=== PATIENT | female | born 1935 | race Caucasian/White ===

== ENCOUNTER 2016-08-17 08:43 | Inpatient (IN) ==
[2016-08-17] MEDS ORDERED: Lidocaine -MPF 1% 2 ML VIAL ID ONE (09:02)
[2016-08-17] MEDS ORDERED: CeFAZolin Pre 2,000 MG/100 ML 2,000 MG/100 ML BAG IVPB ONE (09:02)
[2016-08-17] MEDS ORDERED: Ringers Solution, Lactated 1,000 ML IVC SCH (09:15)
[2016-08-17] MEDS ORDERED: Ondansetron ODT 4 MG TAB.RAPDIS SL ONE (09:23)
[2016-08-17] MEDS ORDERED: Acetaminophen IV 1,000 MG/100 ML INFUS..BTL IVPB ONE (09:23)
--- NOTE | 2016-08-17 09:27 | Anesthesia Evaluation PreOp ---
Date of Encounter: 08/17/16 Time of Encounter: 09:25 - Past History Planned Operation: preet fundoplication Cardiac History: HTN Pulmonary History: Denies Any Significant HX, Snore DIRECTOR OF STUDENT FINANCIAL AID History: Denies Any Significant HX Other Medical History: GERD Anesthesia History: No Prior Anesthetic Complications, Past Anesthesia (History of PONV, patient currently nauseated with her hiatal hernia) Alcohol Use: none Drug use: none Medications and Allergies Acetaminophen [Tylenol] 650 mg PO Q6HR PRN 04/09/16 [History] Aspirin 81 mg PO DAILY 04/09/16 [History] Fish Oil/Dha/Epa [Fish Oil 1,200 mg Fish Oil] 1,200 mg PO DAILY 04/09/16 [ History] Furosemide [Lasix] 20 mg PO DAILY 04/09/16 [History] Losartan Potassium [Cozaar] 100 mg PO DAILY 04/09/16 [History] Metoprolol XL (24 HR) Succ [Toprol XL] 50 mg PO DAILY 04/09/16 [History] Omeprazole [PriLOSEC] 40 mg PO DAILY 04/09/16 [History] Ondansetron ODT [Zofran ODT] 4 - 8 mg SL Q8HR PRN 04/09/16 [History] Potassium Chloride [Klor-Con 10] 10 meq PO DAILY 04/09/16 [History] Pramipexole Di-HCl [Pramipexole Dihydrochloride] 0.5 mg PO HS 04/09/16 [History] Promethazine HCl 12.5 mg PO Q6H PRN 04/09/16 [History] amLODIPine [Norvasc] 5 mg PO DAILY 04/09/16 [History] Allergies codeine Adverse Reaction (Verified 08/17/16 09:27) Nausea doxycycline Adverse Reaction (Verified 08/17/16 09:27) Nausea hydrocodone [From Vicodin] Adverse Reaction (Verified 08/17/16 09:27) Nausea Oxycodone [From Percocet] Adverse Reaction (Verified 08/17/16 09:27) Nausea propoxyphene [From Darvon] Adverse Reaction (Verified 08/17/16 09:27) Nausea tramadol Adverse Reaction (Verified 08/17/16 09:27) Nausea - Meds/Allergy Pre-op Review Medications Reviewed: Yes Allergies Reviewed: Yes Beta Blockers on Current Med List: Yes (metoprolol at 0630) Anesthesia Results - Labs Laboratory Tests 07/22/16 07/22/16 11:19 11:19 Hgb 13.8 Hct 40.8 Plt Count 198 Sodium 139 Potassium 4.6 H Chloride 106 Carbon Dioxide 25 BUN 21 H Creatinine 1.08 - Imaging EKG: report reviewed, image reviewed (sinus rhythm, first degree block, RBBB) Anesthesia Exam Selected Entries 08/17/16 09:04 Temperature 98.6 F Pulse Rate 72 Respiratory Rate 18 Blood Pressure 189/84 O2 Sat by Pulse Oximetry 96 Weight: 86 kg, BMI 33 NPO (# of Hours): over 8 hours - HEENT Pupil (Motor): Pupils equal Mallampati: II Teeth: Normal, Prosthesis Oral Opening: Greater than 3 - DIRECTOR OF STUDENT FINANCIAL AID DIRECTOR OF STUDENT FINANCIAL AID Motor: Deficit RLE (ambulates with walker, knee replacement with less than optimal results), Deficit LLE DIRECTOR OF STUDENT FINANCIAL AID Sensory: Normal: RUE, LUE, RLE, LLE, Face - Cardiac Rhythm: Regular Murmur: None - Pulmonary Breath Sounds: bilateral Clear Anesthesia Assess/Plan ASA Score: 3 Modified Kinga Scale for Level of Consciousness: Cooperative, oriented, and tranquil Anesthetic Plan: General Monitoring Plan: Standard Monitors Recovery Plan: PACU
--- NOTE | 2016-08-17 09:36 | History & Physical Report ---
Date of Encounter: 08/17/16 Time of Encounter: 09:30 24 Hour HP Update - Instructions Instructions: If the History and Physical is less than 30 days old and was completed prior to A.M. admission and or procedure and has NOT been updated on calendar day of procedure please complete this update prior to performing procedure. - Update Patient reports changes in Medical Condition: No Changes in examination, assessment, or condition: No Changes in Medication: No Preop tests/diagnostics Reviewed: Yes Surgery Remains Indicated: Yes Consent for Planned Operative Procedure(s) Verified: Yes - Pre-Operative Checklist Preoperative Checklist Indicated: Yes Prophylactic Antibiotic Ordered: Yes Home Medications Include Beta Wally: Yes Beta Wally Taken Today (Day of Surgery): Yes Beta Wally Taken Yesterday (Day Prior to Surgery): Yes Is VTE Prophylaxis Indicated?: Yes
[2016-08-17] MEDS ORDERED: *HR* Propofol 200 MG/20 ML VIAL IVP ONE (10:45)
[2016-08-17] MEDS ORDERED: *HR* FentaNYL (PF) 100 MCG/2 ML VIAL ONE (10:45)
[2016-08-17] MEDS ORDERED: *HR* Succinylcholine 200 MG/10 ML VIAL IVP ONE (10:46)
[2016-08-17] MEDS ORDERED: Neostigmine Methylsulfate 3 MG/3 ML SYRINGE ONE (10:46)
[2016-08-17] MEDS ORDERED: *HR* Rocuronium Bromide 50 MG/5 ML VIAL ONE (10:46)
[2016-08-17] MEDS ORDERED: Dexamethasone 4 MG/ML VIAL ONE (10:46)
[2016-08-17] MEDS ORDERED: Lidocaine -MPF 2% 2 ML VIAL ONE (10:46)
[2016-08-17] MEDS ORDERED: Ondansetron 4 MG/2 ML VIAL ONE (10:46)
[2016-08-17] MEDS ORDERED: *HR* Morphine 2 MG/ML SYRINGE IVP PRN (10:59)
[2016-08-17] MEDS ORDERED: *HR* Promethazine 25 MG/ML VIAL IVP PRN (10:59)
[2016-08-17] MEDS ORDERED: *HR* Morphine 10 MG/ML VIAL ONE (11:56)
--- NOTE | 2016-08-17 11:58 | Operative Note ---
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 The abdomen was prepped and draped in sterile fashion utilizing ChloraPrep standard draping techniques. Timeout is taken patient was identified. I made a midline incision from the xiphoid to the umbilicus. I entered the abdomen. About 50% of the stomach was in the chest. I reflected the triangular ligament off the diaphragm folding the lateral segment of left lobe medially into the right. This gave me full access to the hiatus area there was a good deal of hernia sac anterior to the esophagus. A lighted bougie was placed in the esophagus to assist with esophageal identification. The hernia sac was divided anteriorly. I continued this division down the right timothy of the diaphragm. I then turned the dissection left lateral and anterior down to the left timothy of the diaphragm. The cardia of the stomach was scar from long-term incarceration in the chest. I divided the scar tissue between the omentum and the cardia. I rotated the hernia sac down onto the anterior surface of the stomach and resected a portion of the hernia sac. Short gastrics were then divided with surgical clips and Harmonic scalpel. The pancreas had been rotated upward and counterclockwise. The upper border of the pancreas was actually in the chest. I divided the tissue connecting the upper border of the pancreas to the mediastinum. This allowed me to see the apex of the hiatal hernia repair the left and right timothy of the diaphragm joined. Hiatal hernia repair was accomplished with 4 stitches of 2-0 Ethibond with pledgets. Repair was performed around a 56-[place]ian bougie. Complete mobilization of the cardia had already been performed. The cardia was brought behind the gastroesophageal junction and Leelee fundoplication was performed with 3 stitches of 2-0 Ethibond with pledgets. I also placed 2 shoulder stitches one on the right side of the Leelee one on the left side of the Leelee securing the Leelee fundoplication to the diaphragm. This gave an excellent technical result. Blood loss was 50 mL. The abdomen was irrigated with copious amounts of antibiotic containing solution. The midline was closed with looped 0 PDS and skin was closed with interrupted 2-0 Vicryl and skin clips. She is transferred to recovery in stable condition.
--- NOTE | 2016-08-17 12:49 | Anesthesia Evaluation Post Op ---
Date of Encounter: 08/17/16 Time of Encounter: 12:45 - Vital Signs Vital Signs: Selected Entries 08/17/16 12:00 08/17/16 12:40 Temperature 97.5 F L Pulse Rate 52 Respiratory Rate 16 Blood Pressure 141/69 O2 Sat by Pulse Oximetry 93 Oxygen Flow Rate (LPM) 4 - Lungs Lungs: Clear Ascult./Percussion - Airway Airway: Non-obstructed - Cardiovascular Regular Rate - Mental Status Mental Status: Sedated - Pain Pain Scale: 10 (Patient sleeping soundly, comfortably but when aroused, states her pain is 10/10) - Nausea Vomiting Nausea Vomiting: Not Present - Hydration Hydration: NPO - Discharge PostOp Status: Transfer Patient to floor
[2016-08-17] MEDS ORDERED: Ketorolac 30 MG/ML VIAL ONE (13:08)
[2016-08-17] MEDS: Ondansetron 4 MG/2 ML VIAL IVP PRN ×2 (14:04→21:09)
[2016-08-17] MEDS: *HR* HYDROmorphone (PF) 1 MG/ML SYRINGE IVP PRN (16:02)
[2016-08-17] MEDS: *HR* Metoprolol 5 MG/5 ML VIAL IVP SCH ×3 (16:36→23:40)
[2016-08-17] MEDS: 0.9 % Sodium Chloride 1,000 ML IVC SCH (16:36)
[2016-08-17] MEDS: *HR* Heparin 5,000 UNIT/ML VIAL SQ SCH (16:37)
[2016-08-17] MEDS: ceFAZolin 2,000 MG in D5% in Water 100 ML IVPB SCH ×2 (16:38→23:39)
[2016-08-17] MEDS ORDERED: *HR* Heparin 5,000 UNIT/ML VIAL SQ SCH (18:00)
[2016-08-18] MEDS: *HR* HYDROmorphone (PF) 1 MG/ML SYRINGE IVP PRN ×3 (01:43→13:22)
[2016-08-18] MEDS: *HR* Heparin 5,000 UNIT/ML VIAL SQ SCH ×2 (05:16→17:43)
[2016-08-18] MEDS: *HR* Metoprolol 5 MG/5 ML VIAL IVP SCH ×4 (05:17→23:32)
[2016-08-18 06:37] LABS: Basophils % 0.1 %; Hematocrit 40.2 % (35.3-44.9); Hemoglobin 13.1 g/dL (11.5-15.4); Immature Granulocytes % 0.3 % (0-4); Lymphocytes # 0.5 K/mcL (0.6-4.6); Lymphocytes % 5.5 %; Mean Corpuscular HGB Conc 32.6 g/dL (31.6-35.5); Mean Corpuscular Hemoglobin 30.8 pg (28.0-33.3); Mean Corpuscular Volume 94.4 fL (83.0-100.0); Mean Platelet Volume 9.2 fL (9.4-12.4); Monocytes # 0.6 K/mcL (0.0-1.3); Monocytes % 6.9 %; Platelet Count 199 K/mcL (140-400); Red Blood Count 4.26 M/mcL (3.82-4.97); Red Cell Distribution Width 12.9 % (11.5-14.5); Segmented Neutrophils % 87.2 %
[2016-08-18 06:49] LABS: BUN/Creatinine Ratio 15 (6-26); Blood Urea Nitrogen 15 mg/dL (7-20); Calcium 9.1 mg/dL (8.6-10.8); Carbon Dioxide 27 mEq/L (19-29); Chloride 105 mEq/L (98-109); Glucose 111 mg/dL (70-99); Osmolality,Calculated 290 (280-300); Potassium 4.3 mEq/L (3.5-4.5); Sodium 139 mEq/L (136-145); eGFR For African Americans > 60 (> 60); eGFR For Non-African Americans 55 (> 60)
[2016-08-18] MEDS: Ondansetron 4 MG/2 ML VIAL IVP PRN ×3 (08:49→17:43)
[2016-08-18] MEDS: 0.9 % Sodium Chloride 1,000 ML IVC SCH (12:14)
[2016-08-18] MEDS ORDERED: 0.9 % Sodium Chloride 1,000 ML IVC SCH (13:27)
[2016-08-18] MEDS ORDERED: *HR* HYDROmorphone (PF) 1 MG/ML SYRINGE IVP PRN (13:27)
--- NOTE | 2016-08-18 13:33 | General Surgery Progress Note ---
<Melissa South - Last Filed: 08/18/16 13:31> Date of Encounter: 08/18/16 Time of Encounter: 13:15 - Assessment and Plan (1) Hiatal hernia Current Visit: Yes Status: Chronic POD #1 from a Open repair of paraesophageal hernia and Leelee fundoplication Advance to clear liquids and clear protein supplements IV fluids- 75ml/hour (increased due to adding toradol) Supportive care and pain control- scheduled PO tylenol and IV toradol, continue dilaudid prn Increase activity as tolerated PPI therapy daily Repeat am labs (2) GERD (gastroesophageal reflux disease) Current Visit: Yes Status: Chronic POD #1 from a Open repair of paraesophageal hernia and Leelee fundoplication Advance to clear liquids and clear protein supplements IV fluids- 75ml/hour (increased due to adding toradol) Supportive care and pain control- scheduled PO tylenol and IV toradol, continue dilaudid prn Increase activity as tolerated PPI therapy daily Repeat am labs Qualifiers: Esophagitis presence: esophagitis presence not specified Qualified Code(s) : K21.9 - Gastro-esophageal reflux disease without esophagitis (3) DVT prophylaxis Current Visit: Yes Status: Acute Heparin 5000 units subcutaneous twice daily for DVT prophylaxis EPCDs to bilateral lower extremities for DVT prophylaxis Subjective Patient reports: still having pain (post surgical pain, patient states that this is not well controlled), voiding w/o difficulty, afebrile, other (States that she does not have an appetite) Objective Vital Signs - Last 8 Hours Temp Pulse Resp BP Pulse Ox 08/18/16 10:46 98.2 F 86 16 135/76 97 08/18/16 07:29 97 08/18/16 06:50 98.0 F 71 17 130/79 97 Intake and Output 08/17/16 08/18/16 08/18/16 23:59 07:59 15:59 Intake Total 100 / 100 100 / 100 1000 / 1000 Output Total 150 / 150 450 / 450 Balance -50 / -50 -350 / -350 1000 / 1000 Intake: IV Fluids 100 / 100 100 / 100 1000 / 1000 0.9 % Sodium Chloride 1, 1000 / 1000 000 ML @ 50 mls/hr IVC . Q20H [facility] Rx#:[id number] Ancef 2,000 MG In 100 / 100 100 / 100 Dextrose 5% 100 ML @ 200 mls/hr IVPB Q8HR [facility] Rx#: [id number] Oral 0 / 0 Output: Urine 150 / 150 450 / 450 Other: Meal NPO NPO Weight 88.3 kg Blood Glucose* 126 106 102 Patient Weight 08/18/16 23:59 Weight 88.3 kg - General physical appearance well developed, well nourished, moderate pain - Eyes normal ocular movement - ENT normal mucosa, atraumatic, normocephalic - Neck Neck exam: trachea midline - Respiratory normal respiratory effort, clear to auscultation - Cardiovascular Cardiovascular exam: Present: RRR - Abdomen Abdomen: Present: bowel sounds present, soft, tender - Incision Incision: Present: clean and dry (Midline with postsurgical dressing noted. Small amount of old shadowing noted.), intact - Neurologic CN 2-12 grossly intact - Psychiatric oriented to time, oriented to person, oriented to place, speech is normal, memory intact - Labs 08/18/16 05:38 08/18/16 05:38 Diabetes panel 08/18/16 Range/Units 05:38 Sodium 139 (136-145) mEq/L Potassium 4.3 (3.5-4.5) mEq/L Chloride 105 (98-109) mEq/L Carbon Dioxide 27 (19-29) mEq/L BUN 15 (7-20) mg/dL Creatinine 0.97 (0.57-1.11) mg/dL Glucose 111 H (70-99) mg/dL Calcium 9.1 (8.6-10.8) mg/dL Calcium panel 08/18/16 Range/Units 05:38 Calcium 9.1 (8.6-10.8) mg/dL Pituitary panel 08/18/16 Range/Units 05:38 Sodium 139 (136-145) mEq/L Potassium 4.3 (3.5-4.5) mEq/L Chloride 105 (98-109) mEq/L Carbon Dioxide 27 (19-29) mEq/L BUN 15 (7-20) mg/dL Creatinine 0.97 (0.57-1.11) mg/dL Glucose 111 H (70-99) mg/dL Calcium 9.1 (8.6-10.8) mg/dL Adrenal panel 08/18/16 Range/Units 05:38 Sodium 139 (136-145) mEq/L Potassium 4.3 (3.5-4.5) mEq/L Chloride 105 (98-109) mEq/L Carbon Dioxide 27 (19-29) mEq/L BUN 15 (7-20) mg/dL Creatinine 0.97 (0.57-1.11) mg/dL Glucose 111 H (70-99) mg/dL Calcium 9.1 (8.6-10.8) mg/dL - VTE Documentation of Mechanical Device: Intermittent pneumatic compression device Consult Discharge Plan - Plan Referrals: Fox Romano MD [Partnered Physician] - 08/31/16 12:10 pm Kit Tidwell DO [Primary Care Provider] - - Attending Attestation I examined this patient and my medical decision-making was reviewed with the SPECIAL EFFECTS MAKEUP ARTIST/PA/Advanced Practice Nurse/Resident Physician. I agree with the documented findings, disposition and treatment plan as described except to the extent set forth below. <Fox Romano - Last Filed: 08/18/16 16:52> Date of Encounter: 08/18/16 Objective Vital Signs - Last 8 Hours Temp Pulse Resp BP Pulse Ox 08/18/16 15:53 97.8 F 72 17 102/56 95 08/18/16 10:46 98.2 F 86 16 135/76 97 Intake and Output 08/18/16 08/18/16 08/18/16 07:59 15:59 23:59 Intake Total 100 / 100 1000 / 1000 Output Total 450 / 450 Balance -350 / -350 1000 / 1000 Intake: IV Fluids 100 / 100 1000 / 1000 0.9 % Sodium Chloride 1, 1000 / 1000 000 ML @ 50 mls/hr IVC . Q20H [facility] Rx#:[id number] Ancef 2,000 MG In 100 / 100 Dextrose 5% 100 ML @ 200 mls/hr IVPB Q8HR [facility] Rx#: [id number] Oral 0 / 0 Output: Urine 450 / 450 Other: Meal NPO Weight 88.3 kg Blood Glucose* 106 102 Patient Weight 08/18/16 23:59 Weight 88.3 kg - Labs 08/18/16 05:38 08/18/16 05:38 Diabetes panel 08/18/16 Range/Units 05:38 Sodium 139 (136-145) mEq/L Potassium 4.3 (3.5-4.5) mEq/L Chloride 105 (98-109) mEq/L Carbon Dioxide 27 (19-29) mEq/L BUN 15 (7-20) mg/dL Creatinine 0.97 (0.57-1.11) mg/dL Glucose 111 H (70-99) mg/dL Calcium 9.1 (8.6-10.8) mg/dL Calcium panel 08/18/16 Range/Units 05:38 Calcium 9.1 (8.6-10.8) mg/dL Pituitary panel 08/18/16 Range/Units 05:38 Sodium 139 (136-145) mEq/L Potassium 4.3 (3.5-4.5) mEq/L Chloride 105 (98-109) mEq/L Carbon Dioxide 27 (19-29) mEq/L BUN 15 (7-20) mg/dL Creatinine 0.97 (0.57-1.11) mg/dL Glucose 111 H (70-99) mg/dL Calcium 9.1 (8.6-10.8) mg/dL Adrenal panel 08/18/16 Range/Units 05:38 Sodium 139 (136-145) mEq/L Potassium 4.3 (3.5-4.5) mEq/L Chloride 105 (98-109) mEq/L Carbon Dioxide 27 (19-29) mEq/L BUN 15 (7-20) mg/dL Creatinine 0.97 (0.57-1.11) mg/dL Glucose 111 H (70-99) mg/dL Calcium 9.1 (8.6-10.8) mg/dL - Attending Attestation The patient was seen and evaluated on morning rounds. Her pain control is good and her incision is clean and dry. We will encourage ambulation today. We should be able to start clear liquids later today. She is not complaining of any dysphagia, chest pain, reflux. Fox Romano MD FACS
[2016-08-18] MEDS: Ketorolac 15 MG/ML VIAL IVP SCH ×2 (17:43→23:32)
[2016-08-18] MEDS: Acetaminophen 325 MG TABLET PO SCH ×3 (18:44→23:32)
[2016-08-19] MEDS: *HR* Heparin 5,000 UNIT/ML VIAL SQ SCH ×2 (06:17→17:17)
[2016-08-19] MEDS: Ketorolac 15 MG/ML VIAL IVP SCH ×3 (06:17→17:17)
[2016-08-19] MEDS: Acetaminophen 325 MG TABLET PO SCH ×3 (06:17→17:17)
[2016-08-19] MEDS: *HR* Metoprolol 5 MG/5 ML VIAL IVP SCH ×3 (06:18→17:17)
[2016-08-19 06:40] LABS: BUN/Creatinine Ratio 16 (6-26); Blood Urea Nitrogen 14 mg/dL (7-20); Calcium 8.5 mg/dL (8.6-10.8); Carbon Dioxide 26 mEq/L (19-29); Chloride 109 mEq/L (98-109); Glucose 88 mg/dL (70-99); Osmolality,Calculated 290 (280-300); Sodium 140 mEq/L (136-145); eGFR For African Americans > 60 (> 60); eGFR For Non-African Americans > 60 (> 60)
[2016-08-19] MEDS ORDERED: *HR* OxyCODONE/APAP 5/325 TABLET PO PRN (12:02)
[2016-08-19] MEDS ORDERED: *HR* HYDROmorphone (PF) 1 MG/ML SYRINGE IVP PRN (12:03)
--- NOTE | 2016-08-19 14:07 | General Surgery Progress Note ---
<Diana Alaniz - Last Filed: 08/19/16 14:24> Date of Encounter: 08/19/16 Time of Encounter: 14:40 - Assessment and Plan (1) Hiatal hernia Status: Chronic POD #2 from a Open repair of paraesophageal hernia and Leelee fundoplication Advance to clear liquids and clear protein supplements IV fluids- 50 ml/hour (increased due to adding toradol) Supportive care and pain control- scheduled PO tylenol and IV toradol, continue dilaudid prn, add percocet prn Increase activity as tolerated PPI therapy daily PT/OT for d/c planning (2) GERD (gastroesophageal reflux disease) Status: Chronic POD #2 from a Open repair of paraesophageal hernia and Leelee fundoplication Advance to clear liquids and clear protein supplements IV fluids- 50 ml/hour (increased due to adding toradol) Supportive care and pain control- scheduled PO tylenol and IV toradol, continue dilaudid prn, add percocet prn Increase activity as tolerated PPI therapy daily PT/OT for d/c planning Qualifiers: Esophagitis presence: esophagitis presence not specified Qualified Code(s) : K21.9 - Gastro-esophageal reflux disease without esophagitis (3) DVT prophylaxis Status: Acute Heparin 5000 units subcutaneous twice daily for DVT prophylaxis EPCDs to bilateral lower extremities for DVT prophylaxis Subjective Patient reports: no new complaints, feels better, pain is less (states pain is much better controlled with current pain regimen including Tylenol and Toradol) , tolerating liquids well (States decreased appetite), voiding w/o difficulty, flatus, no bowel movement, afebrile Narrative: daughter is at bedside and states "mom appears much better today." Patient states she did attempt to drink ensure clear, but did not like the taste and requests a different flavor. Objective Vital Signs - Last 8 Hours Temp Pulse Resp BP Pulse Ox 08/19/16 12:11 97.6 F 64 18 144/80 94 08/19/16 08:02 98.2 F 67 20 165/87 93 Intake and Output 08/18/16 08/19/16 08/19/16 23:59 07:59 15:59 Intake Total 60 / 60 620 / 620 Output Total 0 / 0 250 / 250 Balance 60 / 60 370 / 370 Intake: Oral 60 / 60 620 / 620 Output: Urine 0 / 0 250 / 250 Other: Meal Clear Percent of Meal Consumed 0% # Voids 1 Weight 93.2 kg - General physical appearance no distress, moderate pain - Eyes normal ocular movement - ENT no congestion, atraumatic, normocephalic - Neck Neck exam: trachea midline, no venous distension - Respiratory normal expansion, normal respiratory effort, clear to auscultation - Cardiovascular Cardiovascular exam: Present: RRR - Abdomen Abdomen: Present: bowel sounds present, soft, tender, wound (Midline surgical incision: lean, dry, and intact). Absent: guarding - Incision Incision: Present: clean and dry (Left open to air), intact, approximated - Integumentary no rash - Neurologic CN 2-12 grossly intact - Psychiatric oriented to time, oriented to person, oriented to place, speech is normal - Labs 08/18/16 05:38 08/19/16 05:45 Diabetes panel 08/19/16 Range/Units 05:45 Sodium 140 (136-145) mEq/L Potassium 4.0 (3.5-4.5) mEq/L Chloride 109 (98-109) mEq/L Carbon Dioxide 26 (19-29) mEq/L BUN 14 (7-20) mg/dL Creatinine 0.88 (0.57-1.11) mg/dL Glucose 88 (70-99) mg/dL Calcium 8.5 L (8.6-10.8) mg/dL Calcium panel 08/19/16 Range/Units 05:45 Calcium 8.5 L (8.6-10.8) mg/dL Pituitary panel 08/19/16 Range/Units 05:45 Sodium 140 (136-145) mEq/L Potassium 4.0 (3.5-4.5) mEq/L Chloride 109 (98-109) mEq/L Carbon Dioxide 26 (19-29) mEq/L BUN 14 (7-20) mg/dL Creatinine 0.88 (0.57-1.11) mg/dL Glucose 88 (70-99) mg/dL Calcium 8.5 L (8.6-10.8) mg/dL Adrenal panel 08/19/16 Range/Units 05:45 Sodium 140 (136-145) mEq/L Potassium 4.0 (3.5-4.5) mEq/L Chloride 109 (98-109) mEq/L Carbon Dioxide 26 (19-29) mEq/L BUN 14 (7-20) mg/dL Creatinine 0.88 (0.57-1.11) mg/dL Glucose 88 (70-99) mg/dL Calcium 8.5 L (8.6-10.8) mg/dL - VTE Documentation of Mechanical Device: Intermittent pneumatic compression device Consult Discharge Plan - Plan Additional Instructions: #1 may shower, no tub bath for 2 weeks #2 wash incisions with soap and water and pat dry daily #3 no lifting, pushing, pulling more than 15 pounds for the next 6 weeks #4 no driving until off narcotics for 24 hours and able to safely react in the car #5 may climb stairs Referrals: Fox Romano MD [Partnered Physician] - 08/31/16 12:10 pm Prescriptions: OxyCODONE/APAP 5/325 [Percocet 5/325 MG] 1 each PO Q6HR PRN #30 tablet PRN Reason: Pain Ibuprofen [Motrin] 600 mg PO Q8HR #40 tab <Fox Romano - Last Filed: 08/20/16 16:24> Date of Encounter: 08/19/16 Objective Vital Signs - Last 8 Hours Temp Pulse Resp BP Pulse Ox 08/20/16 10:00 98.5 F 69 18 149/86 93 Intake and Output 08/20/16 08/20/16 08/20/16 07:59 15:59 23:59 Intake Total 200 / 200 Output Total 0 / 0 Balance 200 / 200 Intake: Oral 200 / 200 Output: Urine 0 / 0 Other: Meal Lunch Percent of Meal Consumed 50% - Labs 08/18/16 05:38 08/19/16 05:45 - Attending Attestation I examined this patient and my medical decision-making was reviewed with the TRANSPORT CONDUCTOR/PA/Advanced Practice Nurse/Resident Physician. I agree with the documented findings, disposition and treatment plan as described except to the extent set forth below. The patient is seen and evaluated on morning rounds. She is actually doing quite well and we will advance her diet. We will work on ambulation today. Overall much improved. Fox Romano MD FACS
[2016-08-19] MEDS ORDERED: 0.9 % Sodium Chloride 1,000 ML IVC SCH (14:22)
[2016-08-20] MEDS: *HR* Metoprolol 5 MG/5 ML VIAL IVP SCH ×3 (00:05→11:24)
[2016-08-20] MEDS: Acetaminophen 325 MG TABLET PO SCH ×3 (00:05→11:24)
[2016-08-20] MEDS: Ketorolac 15 MG/ML VIAL IVP SCH ×3 (00:05→11:24)
[2016-08-20] MEDS: *HR* Heparin 5,000 UNIT/ML VIAL SQ SCH (05:07)
[2016-08-20 10:08] VITALS: BP 149/86
--- NOTE | 2016-08-20 11:26 | Discharge Summary ---
<Melissa South - Last Filed: 08/20/16 11:33> Date of Encounter: 08/20/16 Time of Encounter: 11:00 - Discharge Diagnosis (1) Hiatal hernia Priority: Primary Status: Resolved (2) GERD (gastroesophageal reflux disease) Priority: Primary Status: Resolved Qualifiers: Esophagitis presence: esophagitis presence not specified Qualified Code(s) : K21.9 - Gastro-esophageal reflux disease without esophagitis - Discharge Medications Prescriptions: OxyCODONE/APAP 5/325 [Percocet 5/325 MG] 1 each PO Q6HR PRN #30 tablet PRN Reason: Pain Ibuprofen [Motrin] 600 mg PO Q8HR #40 tab Home Medications: Acetaminophen [Tylenol] 650 mg PO Q6HR PRN 04/09/16 [History] Aspirin 81 mg PO DAILY 04/09/16 [History] Fish Oil/Dha/Epa [Fish Oil 1,200 mg Fish Oil] 1,200 mg PO DAILY 04/09/16 [ History] Furosemide [Lasix] 20 mg PO DAILY 04/09/16 [History] Losartan Potassium [Cozaar] 100 mg PO HS 04/09/16 [History] Metoprolol XL (24 HR) Succ [Toprol Xl] 50 mg PO DAILY 04/09/16 [History] Omeprazole [PriLOSEC] 40 mg PO DAILY 04/09/16 [History] Ondansetron ODT [Zofran ODT] 4 - 8 mg SL Q8HR PRN 04/09/16 [History] Potassium Chloride [Klor-Con 10] 10 meq PO DAILY 04/09/16 [History] amLODIPine [Norvasc] 5 mg PO DAILY 04/09/16 [History] Pramipexole Di-HCl [Pramipexole Dihydrochloride] 0.125 mg PO HS 08/17/16 [ History] Ibuprofen [Motrin] 600 mg PO Q8HR #40 tab 08/20/16 [Rx] OxyCODONE/APAP 5/325 [Percocet 5/325 MG] 1 each PO Q6HR PRN #30 tablet 08/20/16 [Rx] Allergies/Adverse Reactions: Allergies codeine Adverse Reaction (Verified 08/17/16 09:27) Nausea doxycycline Adverse Reaction (Verified 08/17/16 09:27) Nausea hydrocodone [From Vicodin] Adverse Reaction (Verified 08/17/16 09:27) Nausea Oxycodone [From Percocet] Adverse Reaction (Verified 08/17/16 09:27) Nausea propoxyphene [From Darvon] Adverse Reaction (Verified 08/17/16 09:27) Nausea tramadol Adverse Reaction (Verified 08/17/16 09:27) Nausea General Surgery Exam Initial Vital Signs Temp Pulse Resp BP Pulse Ox 98.6 F 72 18 189/84 96 08/17/16 09:04 08/17/16 09:04 08/17/16 09:04 08/17/16 09:04 08/17/16 09:04 - General physical appearance well developed, well nourished, no distress - Eyes normal ocular movement - ENT normal mucosa, atraumatic, normocephalic - Neck trachea midline - Respiratory normal respiratory effort, clear to auscultation - Cardiovascular Cardiovascular exam: Present: RRR - Abdomen Abdomen general surgery: Present: bowel sounds present, soft, tender (Minimal, expected postoperative tenderness) - Incision Incision: Present: clean and dry, intact - Integumentary Integumentary general surgery: Present: warm and dry - Neurologic Present: CN 2-12 grossly intact - Psychiatric Psychiatric general surgery: Present: appropriate, oriented to person, oriented to place, oriented to time, speech is normal, memory intact Date of admission: 08/17/16 13:33 Primary care physician: Kit Tidwell DO Consults: 08/19/16 13:57 Consult to Physical Therapy [CONS] Routine Comment: Evaluate, develop and implement POC Reason for Consult: discharge planning Consult to Organizational Research Consultant [CONS] Routine Reason for SW Consult: discharge planning OT [Consult to Occupational Therapy] [CONS] Routine Comment: Evaluate, develop and implement POC Reason for Consult: discharge planning Discharging clinician: Fox Romano ([facility]) Anticipated date of discharge: 08/20/16 - Patient Status Disposition: Transfer Inpatient Rehab Fac Condition: Good Functional capacity at discharge: independent ambulation Overall status at discharge: patient is progressing back to baseline - Discharge Instructions Follow Up With: Fox Romano MD [Partnered Physician] - 08/31/16 12:10 pm Additional Instructions: #1 may shower, no tub bath for 2 weeks #2 wash incisions with soap and water and pat dry daily #3 no lifting, pushing, pulling more than 15 pounds for the next 6 weeks #4 no driving until off narcotics for 24 hours and able to safely react in the car #5 may climb stairs - Diet and Activity Activity: other (See additional instructions above) Diet: other (Maintain patient on full liquid diet until seen in follow-up on 01/07; no carbonated drinks ) - Hospital Course Hospital course: Ms. Swift is a 80 year old female with a history of intrathoracic stomach. She is postop day #3 from Open repair of paraesophageal hernia and Leelee fundoplication. She has progressed very well during hospital stay. Her pain is well-controlled. She is tolerating a full liquid diet. Denies any nausea or vomiting or reflux. Her vital signs are stable and she is afebrile. She is voiding and ambulating without difficulty. We will begin discharge planning and the patient has requested transferred to inpatient rehabilitation for strengthening. We will plan for outpatient follow-up in the next 10-14 days. - Time Spent with Patient Total time spent providing and/or coordinating discharge services: Greater than 30 minutes - Attending Attestation I examined this patient and my medical decision-making was reviewed with the GO GO DANCER/PA/Advanced Practice Nurse/Resident Physician. I agree with the documented findings, disposition and treatment plan as described except to the extent set forth below. <Fox Romano - Last Filed: 08/20/16 16:27> Date of Encounter: 08/20/16 General Surgery Exam Initial Vital Signs Temp Pulse Resp BP Pulse Ox 98.6 F 72 18 189/84 96 08/17/16 09:04 08/17/16 09:04 08/17/16 09:04 08/17/16 09:04 08/17/16 09:04 Date of admission: 08/17/16 13:33 Primary care physician: Kit Tidwell DO Consults: 08/19/16 13:57 Consult to Physical Therapy [CONS] Routine Comment: Evaluate, develop and implement POC Reason for Consult: discharge planning Consult to Organizational Research Consultant [CONS] Routine Reason for SW Consult: discharge planning OT [Consult to Occupational Therapy] [CONS] Routine Comment: Evaluate, develop and implement POC Reason for Consult: discharge planning - Hospital Course Hospital course: Ms. Swift is a 80 year old female - Time Spent with Patient Total time spent providing and/or coordinating discharge services: - Attending Attestation The patient was seen and evaluated on morning rounds and is tolerating full liquids. Her pain control is excellent. We will plan on discharging to extended care facility for continued rehabilitation. Fox Romano MD FACS
--- NOTE | 2016-08-20 11:36 | Physician Discharge Referral ---
ExtendedCare Referral Info Transfer To: [facility] Inpatient rehab Provider in Charge: Dr. Fox Romano Provider in Charge after Transfer: PCP Institutional Level of Care: Skilled - Diagnosis (1) Hiatal hernia Priority: Primary Status: Resolved (2) GERD (gastroesophageal reflux disease) Priority: Primary Status: Resolved Expected Duration of Placement: less than 30 days Prognosis: Good Aware of Diagnosis: Patient, Family Aware of Prognosis: Patient, Family - Transfer Medications Prescriptions: OxyCODONE/APAP 5/325 [Percocet 5/325 MG] 1 each PO Q6HR PRN #30 tablet PRN Reason: Pain Ibuprofen [Motrin] 600 mg PO Q8HR #40 tab Home Medications: Acetaminophen [Tylenol] 650 mg PO Q6HR PRN 04/09/16 [History] Aspirin 81 mg PO DAILY 04/09/16 [History] Fish Oil/Dha/Epa [Fish Oil 1,200 mg Fish Oil] 1,200 mg PO DAILY 04/09/16 [ History] Furosemide [Lasix] 20 mg PO DAILY 04/09/16 [History] Losartan Potassium [Cozaar] 100 mg PO HS 04/09/16 [History] Metoprolol XL (24 HR) Succ [Toprol Xl] 50 mg PO DAILY 04/09/16 [History] Omeprazole [PriLOSEC] 40 mg PO DAILY 04/09/16 [History] Ondansetron ODT [Zofran ODT] 4 - 8 mg SL Q8HR PRN 04/09/16 [History] Potassium Chloride [Klor-Con 10] 10 meq PO DAILY 04/09/16 [History] amLODIPine [Norvasc] 5 mg PO DAILY 04/09/16 [History] Pramipexole Di-HCl [Pramipexole Dihydrochloride] 0.125 mg PO HS 08/17/16 [ History] Ibuprofen [Motrin] 600 mg PO Q8HR #40 tab 08/20/16 [Rx] OxyCODONE/APAP 5/325 [Percocet 5/325 MG] 1 each PO Q6HR PRN #30 tablet 08/20/16 [Rx] Allergies/Adverse Reactions: Allergies codeine Adverse Reaction (Verified 08/17/16 09:27) Nausea doxycycline Adverse Reaction (Verified 08/17/16 09:27) Nausea hydrocodone [From Vicodin] Adverse Reaction (Verified 08/17/16 09:27) Nausea Oxycodone [From Percocet] Adverse Reaction (Verified 08/17/16 09:27) Nausea propoxyphene [From Darvon] Adverse Reaction (Verified 08/17/16 09:27) Nausea tramadol Adverse Reaction (Verified 08/17/16 09:27) Nausea - Respiratory Orders None - Ancillary Orders May use pressure relief devices daily prn, May go on SCOTT w/family/respon democrat w /meds at nurse discretion PRN, May consult with Dentist, Paper Steamer, Market Sales Manager PRN - Advance Directives Code Status: Full Code - Mobility Orders Chair, Ambulate - Rehabiliation Orders Rehab Potential: Good Rehab Orders: ROM Exercises, Evaluation for Physical Therapy, Evaluation for Occupational Therapy - Treatments Skin tear care topically daily PRN per policy List/Other: Full liquid diet only until seen in follow-up on 08/31/16 No carbonated drink #1 may shower, no tub bath for 2 weeks #2 wash incisions with soap and water and pat dry daily #3 no lifting, pushing, pulling more than 15 pounds for the next 6 weeks #4 no driving until off narcotics for 24 hours and able to safely react in the car #5 may climb stairs - Diet Orders House Supplement per Dietary: Full liquid diet only until seen in f/u 08/31/16; Non-dairy based protein supplement TID with meals CERTIFICATION: I certify that the transfer of the above named patient to an Extended Care Facility is necessary for the continuing treatment of the diagnosis listed. The above information is true and accurate reflection of patient's current condition. Confidential - Redisclosure prohibited without a patient's written consent.
== END 2016-08-20 13:28 ==
LOC: SAMDAY 08:43 → 3ANU 13:33
PROVIDERS: ADMIT Surgery; ATTEND Surgery

== ENCOUNTER 2018-12-13 16:41 | Inpatient (IN) ==
[2018-12-13] MEDS ORDERED: Ondansetron 4 MG/2 ML VIAL IVP ONE (16:58)
[2018-12-13] MEDS ORDERED: 0.9 % Sodium Chloride 500 ML IVC ONE (16:59)
[2018-12-13 17:40] LABS: Basophils % 0.2 %; Eosinophils % 0.3 %; Hematocrit 39.7 % (35.3-44.9); Hemoglobin 13.5 g/dL (11.5-15.4); Immature Granulocytes % 0.3 % (0-4); Lymphocytes # 0.8 K/mcL (0.6-4.6); Lymphocytes % 5.9 %; Mean Corpuscular Hemoglobin 31.5 pg (28.0-33.3); Mean Corpuscular Volume 92.5 fL (83.0-100.0); Mean Platelet Volume 9.2 fL (9.4-12.4); Monocytes # 0.8 K/mcL (0.0-1.3); Monocytes % 5.8 %; Neutrophils # 11.3 K/mcL (1.6-8.9); Platelet Count 224 K/mcL (140-400); Red Blood Count 4.29 M/mcL (3.82-4.97); Red Cell Distribution Width 13.5 % (11.5-14.5); Segmented Neutrophils % 87.5 %
[2018-12-13 18:05] LABS: Albumin/Globulin Ratio 1.4 (1.1-2.2); Bilirubin,Direct 0.2 mg/dL (0.0-0.2); Bilirubin,Indirect 0.8 mg/dL (0.0-1.0); Calcium 9.1 mg/dL (8.6-10.3); Globulin 2.9 g/dL (2.4-3.5); Potassium 3.8 mEq/L (3.5-5.1); Total Protein 6.9 g/dL (6.4-8.9)
[2018-12-13] MEDS ORDERED: Piperacillin/Tazobactam 3.375 GM in Water for inj. (sterile) 20 ML IVP ONE (18:52)
[2018-12-13 19:07] LABS: Bilirubin,Urine Negative (Negative); Blood,Urine Negative (Negative); Clarity,Urine Cloudy (Clear); Color,Urine Yellow (Yellow); Glucose,Urine (UA) Normal (Normal); Ketones,Urine Negative (Negative); Leukocyte Esterase,Urine Moderate (Negative); Nitrite,Urine Positive (Negative); Protein,Urine 30 mg/dL (Neg-Trace); Urobilinogen,Urine Normal (Normal)
[2018-12-13 19:09] LABS: Bacteria,Urine Many per hpf (None-Few); Hyaline Casts,Urine None Seen per lpf (None-Few); RBC,Urine 0-3 per hpf (0-3); Squamous Epithelial Cell,Urine Many per lpf (None-Few); WBC,Urine 50-100 per hpf (0-3)
[2018-12-13] MEDS ORDERED: Ringers Solution, Lactated 1,000 ML IVC SCH (21:30)
[2018-12-13] MEDS ORDERED: Acetaminophen 325 MG TABLET PO PRN (22:19)
[2018-12-13] MEDS ORDERED: Ketorolac 30 MG/ML VIAL IVP PRN (22:19)
[2018-12-13] MEDS: MetroNIDAZOLE 500 MG/100 ML 500 MG/100 ML BAG IVPB SCH (23:13)
[2018-12-13] MEDS ORDERED: Nystatin POWDER 30 GM BOTTLE TP PRN (23:23)
[2018-12-14] MEDS ORDERED: GI Cocktail 40 ML EACH PO ONE (00:25)
[2018-12-14] MEDS: Ondansetron 4 MG/2 ML VIAL IVP PRN (00:55)
[2018-12-14] MEDS: *HR* Heparin 5,000 UNIT/ML VIAL SQ SCH ×2 (05:37→17:54)
[2018-12-14 06:09] LABS: Basophils % 0.2 %; Eosinophils % 0.4 %; Hematocrit 35.6 % (35.3-44.9); Immature Granulocytes % 0.3 % (0-4); Lymphocytes # 0.9 K/mcL (0.6-4.6); Lymphocytes % 9.3 %; Mean Corpuscular HGB Conc 33.7 g/dL (31.6-35.5); Mean Corpuscular Hemoglobin 31.4 pg (28.0-33.3); Mean Corpuscular Volume 93.2 fL (83.0-100.0); Monocytes # 0.7 K/mcL (0.0-1.3); Monocytes % 6.9 %; Neutrophils # 8.3 K/mcL (1.6-8.9); Platelet Count 175 K/mcL (140-400); Red Blood Count 3.82 M/mcL (3.82-4.97); Red Cell Distribution Width 13.4 % (11.5-14.5); Segmented Neutrophils % 82.9 %
[2018-12-14 06:34] LABS: Calcium 8.5 mg/dL (8.6-10.3); Potassium 3.5 mEq/L (3.5-5.1)
[2018-12-14] MEDS: MetroNIDAZOLE 500 MG/100 ML 500 MG/100 ML BAG IVPB SCH ×2 (07:55→15:55)
[2018-12-14] MEDS: amLODIPine 5 MG TABLET PO SCH (07:56)
[2018-12-14] MEDS: Famotidine 20 MG TABLET PO SCH (07:56)
[2018-12-14] MEDS: cefTRIAXone 1,000 MG in Water for inj. (sterile) 10 ML IVPB SCH (07:56)
[2018-12-14] MEDS: 0.9 % Sodium Chloride 1,000 ML IVC SCH (15:55)
[2018-12-14] MEDS: Metoprolol XL (24 HR) Succ 50 MG TAB.ER.24H PO SCH (17:54)
[2018-12-15] MEDS: MetroNIDAZOLE 500 MG/100 ML 500 MG/100 ML BAG IVPB SCH ×4 (00:18→23:56)
[2018-12-15] MEDS: 0.9 % Sodium Chloride 1,000 ML IVC SCH (04:41)
[2018-12-15] MEDS: *HR* Heparin 5,000 UNIT/ML VIAL SQ SCH ×2 (05:03→17:36)
[2018-12-15 05:30] LABS: Basophils % 0.5 %; Eosinophils # 0.1 K/mcL (0.0-0.6); Eosinophils % 2.2 %; Hematocrit 35.2 % (35.3-44.9); Hemoglobin 11.1 g/dL (11.5-15.4); Immature Granulocytes % 0.3 % (0-4); Lymphocytes % 15.8 %; Mean Corpuscular HGB Conc 31.5 g/dL (31.6-35.5); Mean Corpuscular Volume 98.3 fL (83.0-100.0); Mean Platelet Volume 9.1 fL (9.4-12.4); Monocytes # 0.4 K/mcL (0.0-1.3); Monocytes % 5.9 %; Neutrophils # 4.7 K/mcL (1.6-8.9); Platelet Count 153 K/mcL (140-400); Red Blood Count 3.58 M/mcL (3.82-4.97); Red Cell Distribution Width 13.2 % (11.5-14.5); Segmented Neutrophils % 75.3 %; White Blood Count 6.3 K/mcL (4.3-11.1)
[2018-12-15 05:49] LABS: BUN/Creatinine Ratio 13 (6-26); Blood Urea Nitrogen 12 mg/dL (8-23); Calcium 8.4 mg/dL (8.6-10.3); Carbon Dioxide 27 mEq/L (23-29); Chloride 108 mEq/L (98-107); Glucose 83 mg/dL (70-105); Osmolality,Calculated 291 (280-300); Phosphorous 2.3 mg/dL (2.7-4.5); Potassium 3.5 mEq/L (3.5-5.1); Sodium 141 mEq/L (136-145); eGFR For African Americans > 60 (> 60); eGFR For Non-African Americans 56 (> 60)
[2018-12-15 07:11] LABS: Adenovirus F 40/41 PCR Not detected (Not detect); Astrovirus PCR Not detected (Not detect); C.difficile Toxin A/B Gene PCR Not detected (Not detect); Campylobacter by PCR Not detected (Not detect); Cryptosporidium by PCR Not detected (Not detect); Cyclospora cayetanensis PCR Not detected (Not detect); E. coli O157 by PCR Not detected (Not detect); Entamoeba histolytica PCR Not detected (Not detect); Enteroaggregative E.coli(EAEC) Not detected (Not detect); Enteropathogenic E.coli(EPEC) Not detected (Not detect); Enterotoxigenic E.coli (ETEC) Not detected (Not detect); Giardia lamblia PCR Not detected (Not detect); Norovirus GI/GII PCR Not detected (Not detect); Plesiomonas shigelloides PCR Not detected (Not detect); Rotavirus A PCR Not detected (Not detect); Salmonella PCR Not detected (Not detect); Sapovirus PCR Not detected (Not detect); Shig/EnteroinvasiveE coli EIEC Not detected (Not detect); Shigalike tox-prod E coli STEC Not detected (Not detect); Vibrio PCR Not detected (Not detect); Vibrio cholerae PCR Not detected (Not detect); Yersinia enterocolitica PCR Not detected (Not detect)
[2018-12-15] MEDS: Ondansetron 4 MG/2 ML VIAL IVP PRN ×3 (08:53→22:06)
[2018-12-15] MEDS: Famotidine 20 MG TABLET PO SCH (10:58)
[2018-12-15] MEDS: amLODIPine 5 MG TABLET PO SCH (10:59)
[2018-12-15] MEDS: cefTRIAXone 1,000 MG in Water for inj. (sterile) 10 ML IVPB SCH (10:59)
[2018-12-15] MEDS: Metoprolol XL (24 HR) Succ 50 MG TAB.ER.24H PO SCH (17:36)
[2018-12-16 06:34] LABS: Basophils % 0.6 %; Eosinophils # 0.2 K/mcL (0.0-0.6); Eosinophils % 2.7 %; Hematocrit 36.2 % (35.3-44.9); Hemoglobin 12.2 g/dL (11.5-15.4); Immature Granulocytes % 0.6 % (0-4); Lymphocytes # 0.9 K/mcL (0.6-4.6); Lymphocytes % 13.7 %; Mean Corpuscular HGB Conc 33.7 g/dL (31.6-35.5); Mean Corpuscular Hemoglobin 31.5 pg (28.0-33.3); Mean Corpuscular Volume 93.5 fL (83.0-100.0); Mean Platelet Volume 9.5 fL (9.4-12.4); Monocytes # 0.4 K/mcL (0.0-1.3); Monocytes % 6.3 %; Neutrophils # 4.7 K/mcL (1.6-8.9); Platelet Count 192 K/mcL (140-400); Red Blood Count 3.87 M/mcL (3.82-4.97); Red Cell Distribution Width 13.2 % (11.5-14.5); Segmented Neutrophils % 76.1 %; White Blood Count 6.2 K/mcL (4.3-11.1)
[2018-12-16] MEDS: MetroNIDAZOLE 500 MG/100 ML 500 MG/100 ML BAG IVPB SCH ×3 (06:35→23:58)
[2018-12-16] MEDS: *HR* Heparin 5,000 UNIT/ML VIAL SQ SCH ×2 (06:36→20:15)
[2018-12-16 06:57] LABS: BUN/Creatinine Ratio 13 (6-26); Blood Urea Nitrogen 11 mg/dL (8-23); Calcium 8.6 mg/dL (8.6-10.3); Carbon Dioxide 26 mEq/L (23-29); Chloride 105 mEq/L (98-107); Glucose 72 mg/dL (70-105); Osmolality,Calculated 288 (280-300); Phosphorous 2.6 mg/dL (2.7-4.5); Potassium 3.6 mEq/L (3.5-5.1); Sodium 140 mEq/L (136-145); eGFR For African Americans > 60 (> 60); eGFR For Non-African Americans > 60 (> 60)
[2018-12-16] MEDS: amLODIPine 5 MG TABLET PO SCH (20:14)
[2018-12-16] MEDS: Famotidine 20 MG TABLET PO SCH (20:14)
[2018-12-16] MEDS: cefTRIAXone 1,000 MG in Water for inj. (sterile) 10 ML IVPB SCH (20:15)
[2018-12-16] MEDS: Metoprolol XL (24 HR) Succ 50 MG TAB.ER.24H PO SCH (20:15)
[2018-12-17] MEDS: *HR* Heparin 5,000 UNIT/ML VIAL SQ SCH ×2 (05:04→17:13)
[2018-12-17 07:20] LABS: Basophils % 0.7 %; Eosinophils # 0.1 K/mcL (0.0-0.6); Eosinophils % 2.4 %; Hematocrit 36.1 % (35.3-44.9); Hemoglobin 12.5 g/dL (11.5-15.4); Immature Granulocytes % 0.7 % (0-4); Lymphocytes # 0.9 K/mcL (0.6-4.6); Lymphocytes % 17.1 %; Mean Corpuscular HGB Conc 34.6 g/dL (31.6-35.5); Mean Corpuscular Hemoglobin 31.8 pg (28.0-33.3); Mean Corpuscular Volume 91.9 fL (83.0-100.0); Mean Platelet Volume 8.9 fL (9.4-12.4); Monocytes # 0.4 K/mcL (0.0-1.3); Monocytes % 6.9 %; Platelet Count 196 K/mcL (140-400); Red Blood Count 3.93 M/mcL (3.82-4.97); Segmented Neutrophils % 72.2 %; White Blood Count 5.5 K/mcL (4.3-11.1)
[2018-12-17 07:39] LABS: BUN/Creatinine Ratio 13 (6-26); Blood Urea Nitrogen 10 mg/dL (8-23); Calcium 8.6 mg/dL (8.6-10.3); Carbon Dioxide 27 mEq/L (23-29); Chloride 104 mEq/L (98-107); Glucose 82 mg/dL (70-105); Magnesium 1.9 mg/dL (1.6-2.6); Osmolality,Calculated 286 (280-300); Phosphorous 2.7 mg/dL (2.7-4.5); Potassium 3.5 mEq/L (3.5-5.1); Sodium 139 mEq/L (136-145); eGFR For African Americans > 60 (> 60); eGFR For Non-African Americans > 60 (> 60)
[2018-12-17] MEDS: cefTRIAXone 1,000 MG in Water for inj. (sterile) 10 ML IVPB SCH (08:17)
[2018-12-17] MEDS: MetroNIDAZOLE 500 MG/100 ML 500 MG/100 ML BAG IVPB SCH ×2 (08:17→15:12)
[2018-12-17] MEDS: Famotidine 20 MG TABLET PO SCH (08:17)
[2018-12-17] MEDS: amLODIPine 5 MG TABLET PO SCH (08:17)
[2018-12-17] MEDS: Metoprolol XL (24 HR) Succ 50 MG TAB.ER.24H PO SCH (17:14)
[2018-12-18] MEDS: MetroNIDAZOLE 500 MG/100 ML 500 MG/100 ML BAG IVPB SCH ×2 (00:17→09:17)
[2018-12-18] MEDS: Ondansetron 4 MG/2 ML VIAL IVP PRN (03:38)
[2018-12-18 04:15] LABS: Basophils % 0.5 %; Eosinophils # 0.1 K/mcL (0.0-0.6); Eosinophils % 1.3 %; Hematocrit 39.7 % (35.3-44.9); Hemoglobin 13.1 g/dL (11.5-15.4); Immature Granulocytes % 0.5 % (0-4); Lymphocytes % 16.6 %; Mean Corpuscular Hemoglobin 31.1 pg (28.0-33.3); Mean Corpuscular Volume 94.3 fL (83.0-100.0); Mean Platelet Volume 8.9 fL (9.4-12.4); Monocytes # 0.5 K/mcL (0.0-1.3); Monocytes % 7.5 %; Neutrophils # 4.5 K/mcL (1.6-8.9); Platelet Count 207 K/mcL (140-400); Red Blood Count 4.21 M/mcL (3.82-4.97); Segmented Neutrophils % 73.6 %; White Blood Count 6.2 K/mcL (4.3-11.1)
[2018-12-18 04:29] LABS: BUN/Creatinine Ratio 12 (6-26); Blood Urea Nitrogen 10 mg/dL (8-23); Calcium 8.8 mg/dL (8.6-10.3); Carbon Dioxide 25 mEq/L (23-29); Chloride 104 mEq/L (98-107); Glucose 81 mg/dL (70-105); Osmolality,Calculated 282 (280-300); Phosphorous 2.6 mg/dL (2.7-4.5); Potassium 3.4 mEq/L (3.5-5.1); Sodium 137 mEq/L (136-145); eGFR For African Americans > 60 (> 60); eGFR For Non-African Americans > 60 (> 60)
[2018-12-18] MEDS: *HR* Heparin 5,000 UNIT/ML VIAL SQ SCH (05:04)
[2018-12-18] MEDS: amLODIPine 5 MG TABLET PO SCH (09:16)
[2018-12-18] MEDS: Famotidine 20 MG TABLET PO SCH (09:17)
[2018-12-18] MEDS: cefTRIAXone 1,000 MG in Water for inj. (sterile) 10 ML IVPB SCH (09:18)
[2018-12-18 15:12] VITALS: BP 124/70
== END 2018-12-18 17:40 | disposition other institution (70) | DRG 392 ==
LOC: EMEROOARM 16:41 → 3ANU 16:41
PROVIDERS: ADMIT Internal Medicine; ATTEND Internal Medicine

== ENCOUNTER 2019-10-01 13:41 | Observation (INO) ==
[2019-10-01] MEDS ORDERED: Orphenadrine 60 MG/2 ML VIAL IVP ONE (14:04)
[2019-10-01 14:28] LABS: Basophils % 0.2 %; Eosinophils % 0.1 %; Hematocrit 44.1 % (35.3-44.9); Hemoglobin 14.3 g/dL (11.5-15.4); Immature Granulocytes % 0.7 % (0-4); Lymphocytes # 1.1 K/mcL (0.6-4.6); Lymphocytes % 10.8 %; Mean Corpuscular HGB Conc 32.4 g/dL (31.6-35.5); Mean Corpuscular Hemoglobin 30.6 pg (28.0-33.3); Mean Corpuscular Volume 94.2 fL (83.0-100.0); Mean Platelet Volume 9.1 fL (9.4-12.4); Monocytes # 0.7 K/mcL (0.0-1.3); Neutrophils # 8.1 K/mcL (1.6-8.9); Platelet Count 230 K/mcL (140-400); Red Blood Count 4.68 M/mcL (3.82-4.97); Red Cell Distribution Width 12.8 % (11.5-14.5); Segmented Neutrophils % 81.2 %
[2019-10-01 14:57] LABS: Bilirubin,Urine Negative (Negative); Blood,Urine Negative (Negative); Clarity,Urine Clear (Clear); Color,Urine Colorless (Yellow); Glucose,Urine (UA) Normal (Normal); Ketones,Urine Negative (Negative); Leukocyte Esterase,Urine Negative (Negative); Nitrite,Urine Negative (Negative); PH,Urine 6.5 pH Units (5.0-8.0); Protein,Urine Negative (Neg-Trace); Specific Gravity,Urine 1.007 (1.010-1.025); Urobilinogen,Urine Normal (Normal)
[2019-10-01 15:11] LABS: Albumin 4.3 g/dL (3.5-5.7); Albumin/Globulin Ratio 1.4 (1.1-2.2); Bilirubin,Total 0.5 mg/dL (0.3-1.0); Calcium 9.8 mg/dL (8.6-10.3); Potassium 3.7 mEq/L (3.5-5.1); Total Protein 7.3 g/dL (6.4-8.9); Troponin I 0.03 ng/mL (< 0.04)
[2019-10-01] MEDS ORDERED: Acetaminophen 325 MG TABLET PO PRN (16:38)
[2019-10-01] MEDS ORDERED: Naloxone 0.4 MG/ML INJ IVP PRN (16:38)
[2019-10-01] MEDS ORDERED: *HR* OxyCODONE Immed Rel 5 MG TABLET PO PRN (16:38)
[2019-10-01] MEDS: amLODIPine 5 MG TABLET PO SCH (18:45)
[2019-10-01 19:04] LABS: Bilirubin,Urine Negative (Negative); Blood,Urine Negative (Negative); Clarity,Urine Clear (Clear); Color,Urine Colorless (Yellow); Glucose,Urine (UA) Normal (Normal); Ketones,Urine Negative (Negative); Leukocyte Esterase,Urine Moderate (Negative); Mucus,Urine Few per lpf (None-Few); Nitrite,Urine Negative (Negative); PH,Urine 6.5 pH Units (5.0-8.0); Protein,Urine Negative (Neg-Trace); RBC,Urine 0-3 per hpf (0-3); Specific Gravity,Urine 1.015 (1.010-1.025); Squamous Epithelial Cell,Urine Few per hpf (None-Few); Urobilinogen,Urine Normal (Normal)
[2019-10-01] MEDS: *HR* Heparin 5,000 UNIT/ML VIAL SQ SCH (20:49)
[2019-10-02] MEDS ORDERED: Melatonin 3 MG TABLET PO PRN (01:10)
[2019-10-02 05:28] LABS: Basophils % 0.3 %; Eosinophils # 0.1 K/mcL (0.0-0.6); Eosinophils % 0.9 %; Hemoglobin 13.1 g/dL (11.5-15.4); Immature Granulocytes % 0.5 % (0-4); Lymphocytes # 2.4 K/mcL (0.6-4.6); Lymphocytes % 31.6 %; Mean Corpuscular HGB Conc 33.6 g/dL (31.6-35.5); Mean Corpuscular Hemoglobin 31.6 pg (28.0-33.3); Mean Corpuscular Volume 94.2 fL (83.0-100.0); Mean Platelet Volume 9.3 fL (9.4-12.4); Monocytes # 0.6 K/mcL (0.0-1.3); Monocytes % 7.9 %; Neutrophils # 4.5 K/mcL (1.6-8.9); Platelet Count 179 K/mcL (140-400); Red Blood Count 4.14 M/mcL (3.82-4.97); Red Cell Distribution Width 12.9 % (11.5-14.5); Segmented Neutrophils % 58.8 %; White Blood Count 7.6 K/mcL (4.3-11.1)
[2019-10-02] MEDS: *HR* Heparin 5,000 UNIT/ML VIAL SQ SCH (05:31)
[2019-10-02 05:48] LABS: Calcium 9.2 mg/dL (8.6-10.3); Magnesium 2.1 mg/dL (1.6-2.6); Phosphorous 3.4 mg/dL (2.7-4.5); Potassium 3.5 mEq/L (3.5-5.1)
[2019-10-02] MEDS: amLODIPine 5 MG TABLET PO SCH (09:04)
[2019-10-02] MEDS ORDERED: *HR* OxyCODONE Immed Rel 5 MG TABLET PO PRN (10:02)
[2019-10-02] MEDS ORDERED: Acetaminophen 325 MG TABLET PO SCH (10:15)
[2019-10-02] MEDS ORDERED: Gabapentin 100 MG CAPSULE PO SCH (10:15)
[2019-10-02 11:01] VITALS: BP 135/74
[2019-10-02] MEDS ORDERED: tiZANidine 4 MG TABLET PO SCH (15:00)
== END 2019-10-02 16:05 | disposition home or self-care (01) ==
LOC: 3NENU 13:41 → EMEROOARM 13:41 → SUATTDRO 16:37 → 3NENU 16:59
PROVIDERS: ADMIT Internal Medicine; ATTEND Internal Medicine

== ENCOUNTER 2021-11-21 19:24 | Inpatient (IN) ==
[2021-11-21] MEDS ORDERED: cephALEXin 500 MG CAPSULE PO ONE (20:36)
[2021-11-21] MEDS ORDERED: 0.9 % Sodium Chloride 1,000 ML IVC ONE (20:36)
[2021-11-21 21:16] LABS: Basophils % 0.6 %; Eosinophils # 0.3 K/mcL (0.0-0.6); Eosinophils % 5.1 %; Hematocrit 37.3 % (35.3-44.9); Hemoglobin 11.9 g/dL (11.5-15.4); Immature Granulocytes % 0.3 % (0-4); Lymphocytes # 0.8 K/mcL (0.6-4.6); Lymphocytes % 12.7 %; Mean Corpuscular HGB Conc 31.9 g/dL (31.6-35.5); Mean Corpuscular Hemoglobin 31.4 pg (28.0-33.3); Mean Corpuscular Volume 98.4 fL (83.0-100.0); Monocytes # 0.5 K/mcL (0.0-1.3); Monocytes % 7.4 %; Neutrophils # 4.8 K/mcL (1.6-8.9); Platelet Count 207 K/mcL (140-400); Red Blood Count 3.79 M/mcL (3.82-4.97); Red Cell Distribution Width 12.6 % (11.5-14.5); Segmented Neutrophils % 73.9 %; White Blood Count 6.5 K/mcL (4.3-11.1)
[2021-11-21 21:25] LABS: Calcium 9.3 mg/dL (8.6-10.3); Magnesium 1.8 mg/dL (1.6-2.6); Potassium 4.1 mEq/L (3.5-5.1)
[2021-11-21 21:35] LABS: Bilirubin,Urine Negative (Negative); Blood,Urine Negative (Negative); Clarity,Urine Clear (Clear); Color,Urine Light-Yellow (Yellow); Glucose,Urine (UA) Normal (Normal); Ketones,Urine Negative (Negative); Leukocyte Esterase,Urine Negative (Negative); Nitrite,Urine Negative (Negative); PH,Urine 5.5 pH Units (5.0-8.0); Protein,Urine Negative (Neg-Trace); Specific Gravity,Urine 1.015 (1.010-1.025); Urobilinogen,Urine Normal (Normal)
[2021-11-21] MEDS ORDERED: Iopamidol - 370 500 ML MLS IVP ONE (22:32)
[2021-11-21 23:08] LABS: ABG Base Excess 2 mEq/L (-2 to 3); ABG HCO3 29 mEq/L (21-27); ABG Oxygen Saturation 82 % (95-98); ABG PCO2 53 mmHg (35-45); ABG PH 7.35 pH Units (7.32-7.45); ABG PO2 50 mmHg (85-104); ABG TCO2 30 mEq/L (20-26)
[2021-11-21] MEDS ORDERED: Ondansetron 4 MG/2 ML VIAL IVP PRN (23:12)
[2021-11-22] MEDS ORDERED: Melatonin 3 MG TABLET PO PRN (01:29)
[2021-11-22] MEDS ORDERED: Naloxone 0.4 MG/ML INJ IVP PRN (01:29)
[2021-11-22 02:07] LABS: Adenovirus Not Detected (Not Detect); Bordetella Pertussis Not Detected (Not Detect); Chlamydophila pneumoniae Not Detected (Not Detect); Coronavirus 229E Not Detected (Not Detect); Coronavirus HKU1 Not Detected (Not Detect); Coronavirus NL63 Not Detected (Not Detect); Coronavirus OC43 Not Detected (Not Detect); Human Metapneumovirus Not Detected (Not Detect); Human Rhinovirus/Enterovirus Not Detected (Not Detect); Influenza A Subtype 2009 H1 Not Detected (Not Detect); Influenza B Not Detected (Not Detect); Mycoplasma pneumoniae Not Detected (Not Detect); Parainfluenza Virus 1 Not Detected (Not Detect); Parainfluenza Virus 2 Not Detected (Not Detect); Parainfluenza Virus 3 Not Detected (Not Detect); Parainfluenza Virus 4 Not Detected (Not Detect); Respiratory Syncytial Virus Not Detected (Not Detect); SARS-CoV-2 Not Detected (Not Detect)
[2021-11-22 02:34] LABS: Hematocrit 36.9 % (35.3-44.9); Hemoglobin 11.6 g/dL (11.5-15.4); Mean Corpuscular HGB Conc 31.4 g/dL (31.6-35.5); Mean Corpuscular Hemoglobin 31.4 pg (28.0-33.3); Platelet Count 200 K/mcL (140-400); Red Blood Count 3.69 M/mcL (3.82-4.97); Red Cell Distribution Width 12.6 % (11.5-14.5); White Blood Count 5.3 K/mcL (4.3-11.1)
[2021-11-22 02:51] LABS: Potassium 4.1 mEq/L (3.5-5.1)
[2021-11-22] MEDS: *HR* Heparin 5,000 UNIT/ML VIAL SQ SCH ×3 (06:13→21:28)
[2021-11-22] MEDS: Ondansetron 4 MG/2 ML VIAL IVP PRN (08:19)
[2021-11-22] MEDS: cephALEXin 500 MG CAPSULE PO SCH ×2 (08:22→12:09)
[2021-11-22] MEDS: Furosemide 40 MG/4 ML VIAL IVP SCH (08:22)
[2021-11-22] MEDS: ceFAZolin 1,000 MG in Water for inj. (sterile) 10 ML IVP SCH ×2 (13:48→18:23)
[2021-11-22] MEDS ORDERED: *HR* Promethazine 25 MG/ML VIAL IM ONE (15:53)
[2021-11-22] MEDS: Metoprolol XL (24 HR) Succ 50 MG TAB.ER.24H PO SCH (18:23)
[2021-11-23] MEDS: ceFAZolin 1,000 MG in Water for inj. (sterile) 10 ML IVP SCH ×3 (00:06→17:02)
[2021-11-23 03:09] LABS: Basophils % 0.6 %; Eosinophils # 0.2 K/mcL (0.0-0.6); Eosinophils % 4.9 %; Hematocrit 33.5 % (35.3-44.9); Hemoglobin 10.5 g/dL (11.5-15.4); Immature Granulocytes % 0.2 % (0-4); Lymphocytes # 1.1 K/mcL (0.6-4.6); Mean Corpuscular HGB Conc 31.3 g/dL (31.6-35.5); Mean Corpuscular Volume 98.8 fL (83.0-100.0); Monocytes # 0.4 K/mcL (0.0-1.3); Monocytes % 8.6 %; Neutrophils # 3.1 K/mcL (1.6-8.9); Platelet Count 185 K/mcL (140-400); Red Blood Count 3.39 M/mcL (3.82-4.97); Red Cell Distribution Width 12.5 % (11.5-14.5); Segmented Neutrophils % 63.7 %; White Blood Count 4.9 K/mcL (4.3-11.1)
[2021-11-23 03:30] LABS: Potassium 3.5 mEq/L (3.5-5.1)
[2021-11-23] MEDS: *HR* Heparin 5,000 UNIT/ML VIAL SQ SCH ×3 (05:18→21:10)
[2021-11-23] MEDS: Furosemide 40 MG/4 ML VIAL IVP SCH (08:06)
[2021-11-23] MEDS: amLODIPine 5 MG TABLET PO SCH (08:07)
[2021-11-23] MEDS: Ondansetron 4 MG/2 ML VIAL IVP PRN (12:31)
[2021-11-23] MEDS: Metoprolol XL (24 HR) Succ 50 MG TAB.ER.24H PO SCH (17:03)
[2021-11-24] MEDS: ceFAZolin 1,000 MG in Water for inj. (sterile) 10 ML IVP SCH ×2 (01:00→08:46)
[2021-11-24 01:41] LABS: Hematocrit 36.5 % (35.3-44.9); Hemoglobin 11.6 g/dL (11.5-15.4); Mean Corpuscular HGB Conc 31.8 g/dL (31.6-35.5); Mean Corpuscular Hemoglobin 30.9 pg (28.0-33.3); Mean Corpuscular Volume 97.3 fL (83.0-100.0); Mean Platelet Volume 9.3 fL (9.4-12.4); Platelet Count 201 K/mcL (140-400); Red Blood Count 3.75 M/mcL (3.82-4.97); Red Cell Distribution Width 12.3 % (11.5-14.5); White Blood Count 5.2 K/mcL (4.3-11.1)
[2021-11-24 02:04] LABS: Calcium 9.2 mg/dL (8.6-10.3); Potassium 3.3 mEq/L (3.5-5.1)
[2021-11-24] MEDS: *HR* Heparin 5,000 UNIT/ML VIAL SQ SCH (05:40)
[2021-11-24] MEDS: Ondansetron 4 MG/2 ML VIAL IVP PRN (05:40)
[2021-11-24] MEDS ORDERED: Potassium Citrate 10 MEQ TABLET.ER PO ONE (08:10)
[2021-11-24] MEDS: Furosemide 40 MG/4 ML VIAL IVP SCH (08:46)
[2021-11-24] MEDS: amLODIPine 5 MG TABLET PO SCH (08:46)
[2021-11-24 10:41] LABS: Adenovirus Not Detected (Not Detect); Bordetella Pertussis Not Detected (Not Detect); Chlamydophila pneumoniae Not Detected (Not Detect); Coronavirus 229E Not Detected (Not Detect); Coronavirus HKU1 Not Detected (Not Detect); Coronavirus NL63 Not Detected (Not Detect); Coronavirus OC43 Not Detected (Not Detect); Human Metapneumovirus Not Detected (Not Detect); Human Rhinovirus/Enterovirus Not Detected (Not Detect); Influenza A Subtype 2009 H1 Not Detected (Not Detect); Influenza B Not Detected (Not Detect); Mycoplasma pneumoniae Not Detected (Not Detect); Parainfluenza Virus 1 Not Detected (Not Detect); Parainfluenza Virus 2 Not Detected (Not Detect); Parainfluenza Virus 3 Not Detected (Not Detect); Parainfluenza Virus 4 Not Detected (Not Detect); Respiratory Syncytial Virus Not Detected (Not Detect); SARS-CoV-2 Not Detected (Not Detect)
[2021-11-24 10:49] VITALS: BP 111/63; PULSE 60; TEMP 97.8; O2SAT 97
[2021-11-24] MEDS ORDERED: Gabapentin 300 MG CAPSULE PO SCH (21:00)
== END 2021-11-24 13:37 | DRG 603 ==
LOC: 3ANU 19:24 → EMEROOARM 19:24 → SUATTDRO 11-22 01:01 → 3ANU 11-22 01:33
PROVIDERS: ADMIT Internal Medicine; ATTEND Internal Medicine